=== PATIENT | male | born 1950 | race African-American/Black ===

== ENCOUNTER 2016-10-17 15:55 | Emergency (ER) | payer MEDICARE, OTHER ==
[~2016-10-17 15:55] MED LIST: ACCUPRIL PO; ATENOLOL PO; BACTRIM DS TABL1 TA1 PO; CERTAGEN PO; IBUPROFEN800 MG PO; KEFLEX500 M1 PO; KLONOPIN PO; LORTAB 10/500 T1 TAB PO; NORVASC PO; PRILOSEC PO
== END 2016-10-17 18:44 | disposition expired ==
LOC: CFTX 15:55
DX: I46.9 Cardiac arrest, cause unspecified (principal); I49.9 Cardiac arrhythmia, unspecified
CPT/HCPCS: 92950; 99285